=== PATIENT | female | born 1995 | race Caucasian/White ===

== ENCOUNTER 2016-08-09 09:07 | Emergency (ER) | payer BC ==
[2016-08-09 09:53] VITALS: BP 121/60
--- NOTE | 2016-08-09 09:57 | UC ---
Throat Pain/Nasal Leon HPI - HPI Summary HPI Summary: sore throat x 3 days, no nasal congestion, no cough, no fever - History of Current Complaint Chief Complaint: UCGeneralIllness Stated Complaint: SORE THROAT Time Seen by Provider: 08/09/16 09:32 Hx Obtained From: Patient Hx Last Menstrual Period: 08/02/16 Onset/Duration: Gradual Onset, Lasting Days - 3, Still Present Severity: Moderate Cough: None Associated Signs & Symptoms: Negative: Sinus Discomfort, Nasal Discharge, Fever , Rash - Allergies/Home Medications Allergies/Adverse Reactions: Allergies Allergy/AdvReac Type Severity Reaction Status Date / Time No Known Allergies Allergy Verified 08/09/16 09:43 PMH/Surg Hx/FS Hx/Imm Hx Psychological History Of: Reports: Anxiety, Depression Denies: Bipolar Disorder, Schizophrenia, Post Traumatic Stress Disorder - Surgical History Surgical History: None - Family History Known Family History: Positive: Cardiac Disease, Diabetes - Social History Alcohol Use: Occasionally Substance Use Type: None Smoking Status (MU): Never Smoked Tobacco - Immunization History Most Recent Influenza Vaccination: Not the Season Review of Systems Constitutional: Negative Skin: Negative Eyes: Negative ENT: Sore Throat Respiratory: Negative Cardiovascular: Negative Gastrointestinal: Negative All Other Systems Reviewed And Are Negative: Yes Physical Exam Triage Information Reviewed: Yes Appearance: Well-Appearing, No Pain Distress, Well-Nourished Vital Signs: Initial Vital Signs Temp 97.8 F 08/09/16 09:44 Pulse 92 08/09/16 09:44 Resp 16 08/09/16 09:44 BP 121/60 08/09/16 09:44 Pulse Ox 100 08/09/16 09:44 Vital Signs Reviewed: Yes Eyes: Positive: Conjunctiva Clear ENT: Positive: Normal ENT inspection, Hearing grossly normal, Pharyngeal erythema - canker sore right side of the throat Neck: Positive: Supple, Nontender, No Lymphadenopathy Respiratory: Positive: Chest non-tender, Lungs clear, Normal breath sounds Cardiovascular: Positive: RRR, No Murmur, Pulses Normal Abdominal Exam: Normal Skin Exam: Normal Throat Pain/Nasal Course/Dx - Differential Dx/Diagnosis Provider Diagnoses: canker sores Discharge - Discharge Plan Condition: Stable Disposition: HOME Patient Education Materials: Canker Sores (ED) Referrals: Job OLSON,Anand Prince [Primary Care Provider] - If Needed
== END 2016-08-09 10:04 | disposition home or self-care (01) ==
LOC: UCCORT 09:07
DX: K12.0 Recurrent oral aphthae (principal); F41.9 Anxiety disorder, unspecified; F33.8 Other recurrent depressive disorders
CPT/HCPCS: 99211; G0463

== ENCOUNTER 2017-01-20 15:27 | Emergency (ER) | payer BC ==
[2017-01-20 15:50] VITALS: BP 135/74
--- NOTE | 2017-01-20 16:14 | UC ---
Eye Complaint HPI - HPI Summary HPI Summary: 21 yo female with bilateral eye irritation x 3 days L>>R left eye matted shut in AMs no URI symptoms no contact lens use no f/c - History of Current Complaint Chief Complaint: UCEye Stated Complaint: LEFT EYE Time Seen by Provider: 01/20/17 16:03 Hx Obtained From: Patient Hx Last Menstrual Period: Irregular/On BCP Onset/Duration: Sudden Onset Timing: Constant Severity Initially: Mild Severity Currently: Mild Pain Intensity: 2 Pain Scale Used: 0-10 Numeric Location of Injury: Conjunctiva Associated Signs And Symptoms: Positive: Drainage (Purulent) - Risk Factors Penetrating Injury Risk Factor: Negative Globe Rupture Risk Factors: Negative Acute Glaucoma Risk Factors: Negative Optic Artery Occlusion Risk Factors: Negative - Allergies/Home Medications Allergies/Adverse Reactions: Allergies Allergy/AdvReac Type Severity Reaction Status Date / Time No Known Allergies Allergy Verified 01/20/17 15:40 Home Medications: Home Medications Methylphenidate ER TAB* [Concerta ER TAB*] 18 mg PO DAILY 01/20/17 [History Confirmed 01/20/17] Sertraline* [Zoloft*] 100 mg PO DAILY 01/20/17 [History Confirmed 01/20/17] PMH/Surg Hx/FS Hx/Imm Hx Previously Healthy: Yes - Surgical History Surgical History: None - Family History Known Family History: Positive: Cardiac Disease, Diabetes - Social History Alcohol Use: Weekly Substance Use Type: None Smoking Status (MU): Never Smoked Tobacco - Immunization History Most Recent Influenza Vaccination: NONE 2015 Most Recent Tetanus Shot: UTD Most Recent Pneumonia Vaccination: N/A Review of Systems Constitutional: Negative Skin: Negative Eyes: Drainage, Eye Redness ENT: Negative Respiratory: Negative Cardiovascular: Negative Gastrointestinal: Negative Genitourinary: Negative Motor: Negative Neurovascular: Negative Musculoskeletal: Negative Neurological: Negative Psychological: Negative All Other Systems Reviewed And Are Negative: Yes Physical Exam Triage Information Reviewed: Yes Appearance: Well-Appearing, No Pain Distress, Well-Nourished Vital Signs: Initial Vital Signs Temp 98.8 F 01/20/17 15:42 Pulse 82 01/20/17 15:42 Resp 16 01/20/17 15:42 BP 135/74 01/20/17 15:42 Pulse Ox 99 01/20/17 15:42 Eyes: Positive: Conjunctiva Inflamed, Discharge - L>>R ENT: Positive: Hearing grossly normal. Negative: Nasal congestion, Nasal drainage, Trismus, Muffled/hoarse voice Neck: Positive: Supple, Nontender Respiratory: Positive: Lungs clear, Normal breath sounds, No respiratory distress, No accessory muscle use Cardiovascular: Positive: RRR, No Murmur Musculoskeletal: Positive: ROM Intact, No Edema Neurological Exam: Normal Psychological Exam: Normal Skin Exam: Normal Eye Complaint Course/Dx - Differential Dx/Diagnosis Provider Diagnoses: conjunctivitis Discharge - Discharge Plan Condition: Stable Disposition: HOME Prescriptions: Polymyx/Trimethoprim OPTH* [Polytrim OPHTH*] 1 - 2 drop BOTH EYES QID #1 btl Patient Education Materials: Conjunctivitis (ED) Referrals: Job OLSON,Anand Prince [Primary Care Provider] - Additional Instructions: you can also use ZADITOR eye drops for irritation
== END 2017-01-20 16:30 | disposition home or self-care (01) ==
LOC: UCCORT 15:27
DX: H10.9 Unspecified conjunctivitis (principal)
CPT/HCPCS: 99212; G0463

== ENCOUNTER 2017-07-14 14:47 | Emergency (ER) | payer BC | END 2017-07-14 16:12 | disposition left against medical advice (07) | LOC: UCCORT 14:47 | DX: Z53.21 Procedure and treatment not carried out due to patient leaving prior to being seen by health care provider (principal) ==

== ENCOUNTER 2018-03-25 13:55 | Emergency (ER) | payer BC ==
[2018-03-25 14:54] VITALS: BP 122/79
--- NOTE | 2018-03-25 15:13 | UC ---
Skin Complaint HPI - HPI Summary HPI Summary: Bee sting to posterior calf yesterday, with increased pain and swelling today. Used ice, but has not taken an antihistamine or benadryl. Hx of cellulitis with previous sting, concerned about that possibility. Headache, feels off, but no fever. - History of Current Complaint Chief Complaint: UCSkin Time Seen by Provider: 03/25/18 15:03 Stated Complaint: LT CALF SKIN COMP Hx Obtained From: Patient Hx Last Menstrual Period: 03/16/18 Onset/Duration: Sudden Onset Timing: Constant Onset Severity: Moderate Current Severity: Moderate Pain Intensity: 5 Location: Discrete - left posterior calf Character: Redness, Raised, Painful Aggravating Factor(s): Touch Alleviating Factor(s): Nothing Associated Signs & Symptoms: Positive: Tenderness Related History: Insect Bite/Sting Similar Episode/Dx as: cellulitis - Allergy/Home Medications Allergies/Adverse Reactions: Allergies Allergy/AdvReac Type Severity Reaction Status Date / Time No Known Allergies Allergy Verified 03/25/18 14:54 Home Medications: Home Medications ALPRAZolam TAB* [Xanax TAB*] 0.25 mg PO Q6H PRN 03/25/18 [History Confirmed ] Review of Systems Constitutional: Negative Skin: Negative Eyes: Negative ENT: Negative Respiratory: Negative Cardiovascular: Negative Gastrointestinal: Negative Genitourinary: Other - condoms for contraception, gets yeast vaginitis with antibiotics Motor: Negative Neurovascular: Negative Musculoskeletal: Arthralgia - left knee feels tight Neurological: Headache - just today, no photophobia or nausea or vomiting. Psychological: Negative Is Patient Immunocompromised?: No All Other Systems Reviewed And Are Negative: Yes PMH/Surg Hx/FS Hx/Imm Hx Psychological History: Anxiety, Other Other Psychological History: ADD - Surgical History Surgical History: None - Family History Known Family History: Positive: Cardiac Disease, Diabetes - Social History Occupation: Employed Full-time Alcohol Use: Occasionally Substance Use Type: None Smoking Status (MU): Never Smoked Tobacco - Immunization History Most Recent Influenza Vaccination: NONE 2015 Most Recent Tetanus Shot: UTD Most Recent Pneumonia Vaccination: N/A Physical Exam Triage Information Reviewed: Yes Appearance: Well-Appearing, Obese Vital Signs: Initial Vital Signs Temp 98.7 F 03/25/18 14:47 Pulse 87 03/25/18 14:47 Resp 17 03/25/18 14:47 BP 122/79 08/30/18 14:47 Pulse Ox 99 03/25/18 14:47 ENT: Positive: Pharynx normal Neck exam: Normal Respiratory: Positive: Lungs clear, Normal breath sounds Cardiovascular: Positive: RRR, No Murmur Musculoskeletal: Positive: Strength Intact, ROM Intact Neurological: Positive: Alert, Muscle Tone Normal Psychological Exam: Normal Skin Exam: Other - posterior upper left calf with 19 x 11 cm area of induration , warmth and erythema. Tender to the touch. Course/Dx - Course Course Of Treatment: antihistamine, cephalexin for possible cellulitisl. - Differential Diagnoses - Skin Complaint Differential Diagnoses: Cellulitis, Urticaria - Diagnoses Provider Diagnoses: bee sting local reaction left posterior thigh. cellulitis Discharge - Sign-Out/Discharge Documenting (check all that apply): Patient Departure All imaging exams completed and their final reports reviewed: No Studies - Discharge Plan Condition: Stable Disposition: HOME Prescriptions: Cephalexin CAP* [Keflex 500 CAP*] 500 mg PO TID #15 cap Fluconazole [Fluconazole 150 mg tab] 150 mg PO ONCE #1 tab Patient Education Materials: Insect Bite or Sting (ED), Cellulitis (ED) Referrals: Job OLSON,Anand Prince [Primary Care Provider] - Additional Instructions: Begin cephalexin for possible infection as a result of the sting because of the increasing tenderness in the area. Continue use of ice or cool compresses. Take a non-sedating antihistamine such as loratidine 10mg or fexofenadine 180mg once daily for several days to decrease the reaction. You can use benadryl at night or at times when sedation does not matter. Dose is 25 to 50mg every 4 hours. Use fluconazole if you develop symptoms of a yeast infection. - Billing Disposition and Condition Condition: STABLE Disposition: Home
== END 2018-03-25 15:33 | disposition home or self-care (01) ==
LOC: UCCORT 13:55
DX: T63.441A Toxic effect of venom of bees, accidental (unintentional), initial encounter (principal); L53.0 Toxic erythema; Y92.9 Unspecified place or not applicable; L03.116 Cellulitis of left lower limb; F41.9 Anxiety disorder, unspecified
CPT/HCPCS: 99212; G0463

== ENCOUNTER 2019-09-20 11:28 | Emergency (ER) | payer BC, OTHER ==
[2019-09-20 11:52] VITALS: BP 136/78
--- NOTE | 2019-09-20 12:02 | UC ---
Throat Pain/Nasal Leon HPI - HPI Summary HPI Summary: sore throat / cough x 1 day cough is dry , no sputum nasal congestion , pnd, fever, chills , body aches + for Flu - History of Current Complaint Chief Complaint: UCRespiratory Stated Complaint: CHILLS, BODY ACHES Time Seen by Provider: 09/20/19 11:53 Hx Obtained From: Patient Hx Last Menstrual Period: 03/16/18 ?: No Onset/Duration: Gradual Onset, Lasting Days - 1, Still Present Severity: Moderate Pain Intensity: 4 Cough: Nonproductive Associated Signs & Symptoms: Positive: Nasal Discharge, Fever. Negative: Wheezing, Hoarseness, Sinus Discomfort, Rash - Allergies/Home Medications Allergies/Adverse Reactions: Allergies Allergy/AdvReac Type Severity Reaction Status Date / Time No Known Allergies Allergy Verified 09/20/19 11:47 Home Medications: Home Medications NK [No Home Medications Reported] 09/20/19 [History Confirmed 09/20/19] PMH/Surg Hx/FS Hx/Imm Hx Psychological History: Depression - Surgical History Surgical History: None - Family History Known Family History: Positive: Cardiac Disease, Diabetes - Social History Alcohol Use: None Substance Use Type: None Smoking Status (MU): Never Smoked Tobacco - Immunization History Most Recent Influenza Vaccination: NONE 2015 Most Recent Tetanus Shot: UTD Most Recent Pneumonia Vaccination: N/A Review of Systems All Other Systems Reviewed And Are Negative: Yes Constitutional: Positive: Fever, Chills, Fatigue Skin: Positive: Negative Eyes: Positive: Negative ENT: Positive: Sore Throat, Nasal Discharge Respiratory: Positive: Cough Musculoskeletal: Positive: Arthralgia, Myalgia Is Patient Immunocompromised?: No Physical Exam Triage Information Reviewed: Yes Appearance: Well-Appearing, No Pain Distress, Well-Nourished Vital Signs: Initial Vital Signs Temp 99 F 09/20/19 11:48 Pulse 104 09/20/19 11:48 Resp 16 09/20/19 11:48 BP 136/78 09/20/19 11:48 Pulse Ox 99 09/20/19 11:48 Vital Signs Reviewed: Yes Eye Exam: Normal Eyes: Positive: Conjunctiva Clear ENT: Positive: Normal ENT inspection, Hearing grossly normal, Pharynx normal, Nasal congestion, TMs normal. Negative: Pharyngeal erythema, Nasal drainage, Sinus tenderness Neck exam: Normal Neck: Positive: Supple, Nontender, No Lymphadenopathy Respiratory: Positive: Chest non-tender, Lungs clear, Normal breath sounds, No respiratory distress Cardiovascular: Positive: No Murmur, Tachycardia Abdominal Exam: Normal Throat Pain/Nasal Course/Dx - Differential Dx/Diagnosis Provider Diagnosis: Influenza Discharge ED - Sign-Out/Discharge Documenting (check all that apply): Patient Departure All imaging exams completed and their final reports reviewed: No Studies - Discharge Plan Condition: Stable Disposition: HOME Patient Education Materials: Influenza (DC) Forms: *Work Release Referrals: Job OLSON,Anand Prince [Primary Care Provider] - If Needed - Billing Disposition and Condition Condition: STABLE Disposition: Home
== END 2019-09-20 12:09 | disposition home or self-care (01) ==
LOC: UCCORT 11:28
DX: J11.1 Influenza due to unidentified influenza virus with other respiratory manifestations (principal)
CPT/HCPCS: 99211; G0463

== ENCOUNTER 2023-06-08 05:40 | Inpatient (IN) ==
[2023-06-08] MEDS ORDERED: Lactated Ringers 1000 ml BAG 1,000 ML IV SCH ×3 (06:00→10:00)
[2023-06-08 06:58] LABS: ABS Basophils 0.1 10^3/uL (0.0-0.1); ABS Eosinophils 0.1 10^3/uL (0.0-0.5); ABS Lymphocytes 2.5 10^3/uL (1.0-4.8); Eosinophil % 0.5 %; Hematocrit 25.5 % (35-45); Hemoglobin 8.5 g/dL (11.5-14.3); Lymphocyte % 17.2 %; Mean Corpuscular Hemoglobin 27.2 pg (27-33); Mean Corpuscular Hgb Conc 33.3 g/dL (31-36); Mean Corpuscular Volume 81.6 fL (80-97); Mean Platelet Volume 7.7 fL (7.5-11.2); Platelet Count 292 10^3/uL (150-450); Red Blood Count 3.12 10^6/uL (3.63-4.92); Red Cell Distribution Width 14.3 % (12-17); White Blood Count 14.6 10^3/uL (3.8-11.8)
[2023-06-08] MEDS ORDERED: ceFOXitin 2 GM IVPREMIX 2 GM/50 ML BAG IVPB ONE (07:28)
[2023-06-08] MEDS ORDERED: Buffered Lidocaine 1% SYRIN 1 ml INTRADERM ONE (07:28)
[2023-06-08] MEDS ORDERED: Sodium Citrate/Citric Acid LIQ 15 ML UDC PO ONE (07:28)
[2023-06-08] MEDS ORDERED: Dexamethasone IV 4 MG/ML VIAL 1 ml VIAL ONE (07:48)
[2023-06-08] MEDS ORDERED: Ondansetron 4 mg VIAL 2 MG/ML 2 ml VIAL ONE (07:48)
[2023-06-08] MEDS ORDERED: Oxytocin 10 UNITS/ML 1 ML VIAL ONE (07:48)
[2023-06-08] MEDS ORDERED: Morphine PF AMP (0.5MG/ML) 5 MG/10 ML AMP ONE (07:49)
[2023-06-08] MEDS ORDERED: Bupivacaine 0.5% SDV PF 30ML VIAL ONE (07:50)
[2023-06-08] MEDS ORDERED: Phenylephrine 40 mcg/mL 10mL (400mcg) SYRINGE ONE (08:05)
[2023-06-08] MEDS ORDERED: fentaNYL 100 mcg/2 ml 50 MCG/ML VIAL ONE (08:27)
[2023-06-08] MEDS: Oxytocin in LR 20,000 MILLI.UNIT/1,000 ML BAG IV SCH ×3 (08:30→15:44)
[2023-06-08] MEDS ORDERED: Acetaminophen IV 1 GM/100ML 1,000 MG/100 ML BAG IV ONE (08:41)
[2023-06-08] MEDS ORDERED: fentaNYL 100 mcg/2 ml 50 MCG/ML VIAL IV PRN (08:51)
[2023-06-08] MEDS ORDERED: Naloxone 0.4 mg VIAL 0.4 mg/ml 1 ml VIAL IV PRN (08:51)
[2023-06-08] MEDS ORDERED: Naloxone 0.4 mg VIAL 0.4 mg/ml 1 ml VIAL IV PUSH PRN (08:52)
[2023-06-08] MEDS ORDERED: Metoclopramide 5 MG/ML VIAL (10 mg) IV PRN (08:52)
[2023-06-08] MEDS ORDERED: Ondansetron 4 mg VIAL 2 MG/ML 2 ml VIAL IV PRN (08:52)
[2023-06-08] MEDS ORDERED: Acetaminophen IV 1 GM/100ML 1,000 MG/100 ML BAG IV PRN (08:52)
[2023-06-08] MEDS ORDERED: Glycerin ADULT 2.4 gm SUPP PR PRN (09:12)
[2023-06-08] MEDS ORDERED: Witch Hazel PAD JAR TOPICAL PRN (09:12)
[2023-06-08] MEDS ORDERED: Varicella Virus Vaccine Live 0.5 ML VIAL SUBCUT ONE (09:12)
[2023-06-08] MEDS ORDERED: Dibucaine 1% OINT 28.35 GM TUBE PR PRN (09:12)
[2023-06-08 15:15] LABS: Urine Appearance Clear; Urine Bilirubin Negative (Negative); Urine Blood Negative (Negative); Urine Color Straw; Urine Glucose Negative (Negative); Urine Ketones Negative (Negative); Urine Nitrite Negative (Negative); Urine Protein Negative (Negative); Urine Specific Gravity 1.005 (1.002-1.030); Urine Urobilinogen Negative (Negative)
[2023-06-08 16:10] LABS: Urine Benzodiazepine Screen None Detected (None Detect); Urine Cannabinoids Screen None Detected (None Detect); Urine Opiates Screen None Detected (None Detect)
[2023-06-09 08:04] LABS: ABS Lymphocytes 2.6 10^3/uL (1.0-4.8); ABS Monocytes 1.1 10^3/uL (0.0-0.9); ABS Neutrophils 11.6 10^3/uL (1.5-7.6); ABS Nucleated RBC 0.01 10^3/ul; Eosinophil % 0.3 %; Hematocrit 27.2 % (35-45); Hemoglobin 8.7 g/dL (11.5-14.3); Lymphocyte % 16.7 %; Mean Corpuscular Hemoglobin 26.8 pg (27-33); Mean Corpuscular Hgb Conc 31.8 g/dL (31-36); Mean Corpuscular Volume 84.3 fL (80-97); Mean Platelet Volume 7.3 fL (7.5-11.2); Platelet Count 255 10^3/uL (150-450); Red Blood Count 3.23 10^6/uL (3.63-4.92); Red Cell Distribution Width 14.3 % (12-17); White Blood Count 15.3 10^3/uL (3.8-11.8)
[2023-06-10 11:59] VITALS: BP 132/67
== END 2023-06-10 13:45 | disposition home or self-care (01) | DRG 788 ==
LOC: MCHOB 05:40
PROVIDERS: ADMIT Obstetrics & Gynecology; ATTEND Obstetrics & Gynecology